=== PATIENT | male | born 1955 | race Caucasian/White ===

== ENCOUNTER 2016-11-01 06:59 | Day surgery (SDC) | payer OTHER ==
[~2016-11-01] VITALS: Ht 177.8 cm; Wt 77.1 kg
[2016-11-01 07:20] VITALS: BP 139/77
[2016-11-01 09:39] VITALS: BP 114/70
== END 2016-11-01 10:30 | disposition home or self-care (01) ==
LOC: DS 06:59 → OR 08:30 → GI 08:30 → DS 10:30
PROVIDERS: Internal Medicine Gastroenterology
PROC: 0DJD8ZZ Inspection of Lower Intestinal Tract, Via Natural or Artificial Opening Endoscopic (ICD-10-PCS; principal; 2016-11-01 08:30)
DX: Z12.11 Encounter for screening for malignant neoplasm of colon (principal); K57.30 Diverticulosis of large intestine without perforation or abscess without bleeding; Z95.5 Presence of coronary angioplasty implant and graft
CPT/HCPCS: 45378; J1200; J1610; J2250; J2310; J3010; J3490